=== PATIENT | female | born 1985 | race Caucasian/White ===

== ENCOUNTER 2020-07-11 14:41 | Emergency (ER) | payer OTHER ==
--- NOTE | 2020-07-11 15:36 | ED Physician Documentation ---
History of Present Illness - Stated complaint Stated Complaint: ABNORMAL TASTE - Chief complaint Chief Complaint: General - History obtained from History obtained from: Patient - Additonal information Additional information: She lost her sense of taste about 5 days ago, it was associated with runny nose and a cough. She was tested for Covid the next day and it was negative. She continues to have no taste. Got worse today because she drank some cranberry juice and tasted acidic. No new Medications, only medication is Zoloft which she has been on for a long time. Review of Systems Constitutional: reports: Fever. denies: Chills Nose: reports: Rhinorrhea / runny nose Throat: denies: Sore throat Respiratory: reports: Cough. denies: Dyspnea GI: denies: Vomiting, Diarrhea PD PAST MEDICAL HISTORY - Allergies Allergies/Adverse Reactions: Allergies Allergy/AdvReac Type Severity Reaction Status Date / Time Penicillins Allergy Anaphylaxis Verified 07/11/20 14:49 PD ED PE NORMAL - Vitals Vital signs reviewed: Yes - General General: Alert and oriented X 3, No acute distress - HEENT HEENT: Pharynx benign - Cardiac Cardiac: RRR, No murmur - Respiratory Respiratory: No respiratory distress, Clear bilaterally - Abdomen Abdomen: Non tender - Derm Derm: No rash - Neuro Neuro: Alert and oriented X 3, Normal speech - Psych Psych: Normal mood, Normal affect Results - Vitals Vitals: Vital Signs - 24 hr 07/11/20 14:49 Temperature 37.3 C Heart Rate 130 H Respiratory 18 Rate Blood Pressure 139/93 H O2 Saturation 97 Oxygen O2 Source Room air PD MEDICAL DECISION MAKING - ED course ED course: 34-year-old woman with URI symptoms and loss of taste. Will repeat Covid test. Otherwise her examination is benign. No new medications to explain this. Departure - Departure Disposition: Home, Self Care Clinical Impression: Loss of taste, Viral URI Condition: Good Record reviewed to determine appropriate education?: Yes Instructions: ED Viral Syndrome Comments: You have a Covid test pending. You need to self quarantine until the result is done and negative. Do not leave your house. Do not get near anybody. The results should be done in 48 to 72 hours. We will call with a positive result, the fastest way to get a negative result for confirmation though is to go to the hospital website at [email or web address], click on the my [email or web address] tab and sign up for the patient portal. Forms: Activity restrictions
[2020-07-11 15:57] VITALS: BP 135/92
== END 2020-07-11 15:58 | disposition home or self-care (01) ==
LOC: ED 14:41
DX: R43.9 Unspecified disturbances of smell and taste (principal); J06.9 Acute upper respiratory infection, unspecified; Z20.828 Contact with and (suspected) exposure to other viral communicable diseases
CPT/HCPCS: 99283; 99284

== ENCOUNTER 2021-09-07 15:13 | Outpatient (CLI) | payer OTHER ==
[2021-09-07 15:42] LABS: CHOL/HDL RATIO 4.6 (<4.4); CHOLESTEROL 203 mg/dL; HDL CHOLESTEROL 44 mg/dL; LDL CHOLESTEROL,CALCULATED 133 mg/dL; TRIGLYCERIDES 131 mg/dL; VLDL CHOLESTEROL 26 mg/dL
[2021-09-07 15:55] LABS: THYROID STIMULATING HORMONE 1.89 uIU/mL (0.34-5.60)
[2021-09-07 15:57] LABS: FREE T4 (FREE THYROXINE) 0.66 ng/dL (0.58-1.64)
== END 2021-09-07 15:14 | disposition home or self-care (01) ==
LOC: LAB 15:13
PROVIDERS: ATTEND Nurse Practitioner Obstetrics & Gynecology
DX: E66.9 Obesity, unspecified (principal)
CPT/HCPCS: 36415; 80061; 83721; 84439; 84443

== ENCOUNTER 2022-01-17 16:38 | Outpatient (CLI) | payer OTHER | END 2022-01-17 23:59 | disposition home or self-care (01) | LOC: LAB.N 16:38 | PROVIDERS: ATTEND Registered Nurse | DX: J34.89 Other specified disorders of nose and nasal sinuses (principal); Z20.822 Contact with and (suspected) exposure to COVID-19 ==

== ENCOUNTER → 2022-08-17 | Outpatient (CLI) | payer OTHER | END | disposition critical access hospital (66) | LOC: EMS 07:34 | DX: T78.40XA Allergy, unspecified, initial encounter (principal); R60.0 Localized edema; I10 Essential (primary) hypertension | CPT/HCPCS: A0425; A0427 ==

== ENCOUNTER 2022-08-22 13:33 | Emergency (ER) | payer OTHER ==
[2022-08-22 13:46] VITALS: BP 142/108
[2022-08-22] MEDS ORDERED: ONDANSETRON ODT 4 MG TABLET TL STA (13:46)
[2022-08-22 14:06] LABS: BASOPHILS # (AUTO) 0.1 10^3/uL (0.0-0.1); BASOPHILS % (AUTO) 0.5 %; EOSINOPHILS # (AUTO) 0.1 10^3/uL (0.0-0.7); EOSINOPHILS % (AUTO) 0.5 %; HCT - HEMATOCRIT 40.7 % (37.0-47.0); LYMPHOCYTES # (AUTO) 1.7 10^3/uL (1.5-3.5); LYMPHOCYTES % (AUTO) 15.8 %; MEAN CORPUSCULAR HEMOGLOBIN 26.6 pg (27.0-31.0); MEAN CORPUSCULAR HGB CONC 31.9 g/dL (32.0-36.0); MEAN CORPUSCULAR VOLUME 83.2 fL (81.0-99.0); MEAN PLATELET VOLUME 10.1 fL (7.9-10.8); MONOCYTES # (AUTO) 1.1 10^3/uL (0.0-1.0); NEUTROPHILS # (AUTO) 7.7 10^3/uL (1.5-6.6); NEUTROPHILS % (AUTO) 72.8 %; PLT - PLATELET COUNT 317 10^3/uL (130-450); RED BLOOD COUNT 4.89 10^6/uL (4.20-5.40); RED CELL DISTRIBUTION WIDTH 13.7 % (12.0-15.0); WHITE BLOOD COUNT 10.6 x10^3/uL (4.8-10.8)
[2022-08-22 14:15] LABS: BILIRUBIN,URINE NEGATIVE (NEGATIVE); GLUCOSE, URINE (UA) NEGATIVE (NEGATIVE); KETONES,URINE (UA) NEGATIVE (NEGATIVE); LEUKOCYTE ESTERASE, URINE NEGATIVE (NEGATIVE); NITRITE,URINE NEGATIVE (NEGATIVE); OCCULT BLOOD,URINE SMALL (NEGATIVE); PROTEIN,URINE NEGATIVE (NEGATIVE); UROBILINOGEN,URINE 0.2 (NORMAL) E.U./dL (NORMAL)
[2022-08-22 14:16] LABS: CLARITY,URINE CLEAR (CLEAR); HCG UR QUAL NEGATIVE
[2022-08-22 14:27] LABS: BACTERIA,URINE Few /HPF (None Seen); RBC,URINE 0-5 /HPF (0-5); SQUAMOUS EPITHELIAL CELL,UR MANY Squamous (<= Few)
[2022-08-22 14:30] LABS: ALBUMIN 3.7 g/dL (3.2-5.5); ALBUMIN/GLOBULIN RATIO 0.9 (1.0-2.2); BILIRUBIN,TOTAL 0.4 mg/dL (0.2-1.0); CALCIUM 8.6 mg/dL (8.5-10.3); CREATININE 0.8 mg/dL (0.4-1.0); POTASSIUM 3.4 mmol/L (3.5-5.0); TOTAL PROTEIN 7.8 g/dL (6.7-8.2)
== END 2022-08-22 17:23 | disposition left against medical advice (07) ==
LOC: ED 13:33
DX: Z53.29 Procedure and treatment not carried out because of patient's decision for other reasons (principal)
CPT/HCPCS: 36415; 80053; 81001; 81025; 83690; 85025; Q0162; 81003; 87086

== ENCOUNTER 2023-07-24 18:41 | Outpatient (CLI) | payer OTHER ==
--- NOTE | 2023-07-25 16:55 | XRAY Report ---
PROCEDURE: Hand 2 View RT INDICATIONS: PAIN IN RIGHT HAND TECHNIQUE: 2 views of the hand(s) acquired. COMPARISON: None. FINDINGS: Bones: No fractures or dislocations. No suspicious bony lesions. Soft tissues: No suspicious soft tissue calcifications or masses. IMPRESSION: No acute bony abnormality. If pain persists with conservative management, consider repeat x-ray in 10 -14 days or cross-sectional imaging. Reviewed by: Keyur Hearn MD on 07/25/2023 4:54 PM PST Approved by: Keyur Hearn MD on 07/25/2023 4:54 PM PST Station ID: [id number]
== END 2023-07-24 18:42 | disposition home or self-care (01) ==
LOC: DI 18:41
PROVIDERS: ATTEND Nurse Practitioner
DX: M79.641 Pain in right hand (principal)